=== PATIENT | male | born 1965 | race Caucasian/White ===

== ENCOUNTER 2017-09-19 09:39 | Emergency (ER) | payer OTHER ==
[~2017-09-19] VITALS: Ht 177.8 cm; Wt 93.4 kg
[2017-09-19] MEDS ORDERED: ATENOLOL25 MG (10:43)
== END 2017-09-19 14:58 | disposition home or self-care (01) ==
LOC: ER 09:39
DX: K40.90 Unilateral inguinal hernia, without obstruction or gangrene, not specified as recurrent (principal); K43.9 Ventral hernia without obstruction or gangrene; K76.89 Other specified diseases of liver; N39.0 Urinary tract infection, site not specified; N20.9 Urinary calculus, unspecified